=== PATIENT | male | born 1945 | race Caucasian/White ===

== ENCOUNTER 2017-12-12 05:41 | Day surgery (SDC) | payer MEDICARE, OTHER ==
[~2017-12-12] VITALS: Ht 172.7 cm; Wt 81.0 kg
[2017-12-12] MEDS ORDERED: LACTATED RINGERS 1,000 ML IV SCH (06:30)
[2017-12-12] MEDS ORDERED: LIDOCAINE-MPF 1%, 2ML INFIL ONE (06:30)
[2017-12-12] MEDS ORDERED: EPINEPHRINE 1 MG/ML, 1ML ONE (06:58)
[2017-12-12] MEDS ORDERED: BUPIVACAINE/PF-EPI 0.25% 1:200K ONE (06:58)
[2017-12-12] MEDS ORDERED: VANCOMYCIN 1,000 MG ONE (06:58)
[2017-12-12] MEDS ORDERED: LIDOCAINE/PF 0.5% ,50ML ONE (06:58)
[2017-12-12] MEDS ORDERED: THROMBIN 5,000 UNIT VIAL TP ONE (06:58)
[2017-12-12 07:02] VITALS: BP 119/80
[2017-12-12] MEDS ORDERED: MIDAZOLAM 1 MG/ML, 2ML ONE (07:17)
[2017-12-12 07:29] LABS: INTERNATIONAL NORMALIZED RATIO 1.02 (0.93-1.1); PROTHROMBIN TIME 10.5 Seconds (9.6-11.5)
[2017-12-12] MEDS ORDERED: ATOR20TA9 PO (07:33)
[2017-12-12] MEDS ORDERED: LOSA100T6 PO (07:33)
[2017-12-12] MEDS ORDERED: TRIA1CAP3 PO (07:33)
[2017-12-12] MEDS ORDERED: AMLO5TAB2 PO (07:33)
[2017-12-12] MEDS ORDERED: VITAMIN C PO (07:33)
[2017-12-12] MEDS ORDERED: LEVO25TA4 PO (07:33)
[2017-12-12] MEDS ORDERED: VIT D PO (07:33)
[2017-12-12] MEDS ORDERED: ASPI-496 PO (07:33)
[2017-12-12] MEDS ORDERED: POLY17PO5 PO (07:33)
[2017-12-12] MEDS ORDERED: OMEP40CA6 PO (07:33)
[2017-12-12] MEDS ORDERED: WARF-36 PO (07:33)
[2017-12-12] MEDS ORDERED: OMEG1CAP6 PO (07:33)
[2017-12-12] MEDS ORDERED: LIDOCAINE PATCH TD (07:33)
[2017-12-12] MEDS ORDERED: PRESERVISION PO (07:33)
[2017-12-12] MEDS ORDERED: MULT-658 PO (07:33)
[2017-12-12] MEDS ORDERED: METF500T5 PO (07:33)
[2017-12-12] MEDS ORDERED: GABAPENTIN 300 MG CAPSULE ONE (07:36)
[2017-12-12] MEDS ORDERED: ACETAMINOPHEN 500 MG TABLET ONE (07:36)
[2017-12-12] MEDS ORDERED: NEOSTIGMINE 1 MG/ML, 10ML ONE (07:46)
[2017-12-12] MEDS ORDERED: ROCURONIUM 10 MG/ML,10ML ONE (07:46)
[2017-12-12] MEDS ORDERED: ONDANSETRON 2MG/ML, 2ML ONE (07:46)
[2017-12-12] MEDS ORDERED: CEFAZOLIN 1,000 MG ONE (07:46)
[2017-12-12] MEDS ORDERED: PROPOFOL 10 MG/ML, 20ML ONE (07:46)
[2017-12-12] MEDS ORDERED: GLYCOPYRROLATE 0.2MG/1ML, 5ML ONE (07:46)
[2017-12-12] MEDS ORDERED: hydrALAzine 20 MG/ML, 1ML IV PRN (08:30)
[2017-12-12] MEDS ORDERED: HYDROmorphone 1 MG/ML, 1ML IV PRN (08:30)
[2017-12-12] MEDS ORDERED: OXYcodone 5 MG/5 ML ORAL.SOL UDC PO PRN (08:30)
[2017-12-12] MEDS ORDERED: MEPERIDINE/PF 25MG/0.5ML IVPush PRN (08:30)
[2017-12-12] MEDS ORDERED: LORazepam 2 MG/ML, 1ML IVPush PRN (08:30)
[2017-12-12] MEDS ORDERED: FENTANYL PF 100 MCG/2ML IV PRN (08:30)
[2017-12-12] MEDS ORDERED: PROMETHAZINE 25 MG/ML, 1ML IV PRN (08:30)
[2017-12-12] MEDS ORDERED: ALBUTEROL SULFATE 2.5 MG/3 ML NPPB PRN (08:30)
[2017-12-12] MEDS ORDERED: LABETALOL 5MG/ML, 20ML IV PRN (08:30)
[2017-12-12] MEDS ORDERED: FENTANYL PF 250 MCG/5ML ONE (09:16)
[2017-12-12] MEDS ORDERED: OXYcodone 5 MG/5 ML ORAL.SOL UDC ONE (09:48)
== END 2017-12-12 12:25 | disposition home or self-care (01) ==
LOC: OUT 05:41
PROVIDERS: ATTEND Orthopaedic Surgery Orthopaedic Surgery of the Spine
DX: M54.16 Radiculopathy, lumbar region (principal); M48.061 Spinal stenosis, lumbar region without neurogenic claudication; E11.9 Type 2 diabetes mellitus without complications; I10 Essential (primary) hypertension; Z96.641 Presence of right artificial hip joint; Z98.890 Other specified postprocedural states; Z79.82 Long term (current) use of aspirin
CPT/HCPCS: 36415; 63047; 72100; 82962; 85610; 85730; J0171; J0690; J2001; J2250; J2405; J2704; J2710; J3010; J3370; J3490

== ENCOUNTER 2018-01-04 02:13 | Inpatient (IN) | payer MEDICARE, OTHER ==
[~2018-01-04] VITALS: Ht 172.7 cm; Wt 79.8 kg
[~2018-01-04 02:13] MED LIST: AMLO5TAB7 PO; ASPI-496 PO; ATOR20TA9 PO; LEVO25TA4 PO; LIDOCAINE PATCH TD; LOSA100T7 PO; METF500T17 PO; MULT-658 PO; OMEG1CAP6 PO; OMEP40CA6 PO; POLY17PO5 PO; PRESERVISION PO; TRIA1CAP3 PO; VIT D PO; VITAMIN C PO; WARF-36 PO
[2018-01-04] MEDS ORDERED: MORPHINE SULFATE 4 MG/ML, 1ML IVPush ONE (03:00)
[2018-01-04] MEDS ORDERED: ONDANSETRON ODT 4 MG PO ONE (03:00)
[2018-01-04 03:10] LABS: BASOPHILS # (AUTO) 0.02 x10^3/uL (0-0.1); BASOPHILS % (AUTO) 0 % (0-1); EOSINOPHILS # (AUTO) 0.04 x10^3/uL (0-0.4); EOSINOPHILS % (AUTO) 0 % (1-7); LYMPHOCYTES # (AUTO) 0.48 x10^3/uL (1-3.4); LYMPHOCYTES % (AUTO) 4 % (22-44); MD NO; MEAN CORPUSCULAR HEMOGLOBIN 30.2 pg (27.5-34.5); MEAN CORPUSCULAR HGB CONC 33.8 g/dL (33.2-36.2); MEAN CORPUSCULAR VOLUME 89.4 fL (81-97); MEAN PLATELET VOLUME 9.4 fL (7.4-10.4); MONOCYTES # (AUTO) 0.48 x10^3/uL (0.2-0.8); MONOCYTES % (AUTO) 4 % (2-9); NEUTROPHILS # (AUTO) 9.97 x10^3/uL (1.8-6.8); NEUTROPHILS % (AUTO) 91 % (42-75); PLATELET COUNT 120 x10^3/uL (130-400); RED BLOOD COUNT 4.87 x10^6/uL (4.38-5.82); RED CELL DISTRIBUTION WIDTH 14.3 % (9.4-14.8)
[2018-01-04 03:12] LABS: CULTURE INDICATED? YES; MICROSCOPIC INDICATED
[2018-01-04] MEDS ORDERED: ONDANSETRON ODT 4 MG ONE (03:20)
[2018-01-04] MEDS ORDERED: MORPHINE SULFATE 4 MG/ML, 1ML ONE (03:21)
[2018-01-04 03:23] LABS: ALANINE AMINOTRANSFERASE 36 U/L (12-78); ALBUMIN 3.3 g/dL (3.4-5.0); ANION GAP 10 mmol/L (5-15); CALCIUM 9.3 mg/dL (8.5-10.1); CHLORIDE 103 mmol/L (98-107); CREATININE 1.79 mg/dL (0.7-1.3)
[2018-01-04 03:25] LABS: ALKALINE PHOSPHATASE 96 U/L (45-117); BILIRUBIN,TOTAL 1.7 mg/dL (0.2-1.0)
[2018-01-04] MEDS ORDERED: SODIUM CHLORIDE 0.9% 1,000 ML IV ONE (03:58)
[2018-01-04] MEDS ORDERED: MORPHINE SULFATE 4 MG/ML, 1ML IVPush PRN ×2 (04:00→16:30)
[2018-01-04 05:16] VITALS: BP 143/86
[2018-01-04] MEDS: SODIUM CHLORIDE 0.9% 1,000 ML IV SCH ×2 (05:53→18:54)
[2018-01-04] MEDS ORDERED: ONDANSETRON 2MG/ML, 2ML IVPush PRN (06:00)
[2018-01-04] MEDS: POLYETHYLENE GLYCOL 17 GM PACKET PO SCH ×2 (06:00→07:31)
[2018-01-04] MEDS ORDERED: POLYETHYLENE GLYCOL 17 GM PACKET PO PRN (06:00)
[2018-01-04] MEDS: ASPIRIN 81 MG TABLET EC PO SCH (06:00)
[2018-01-04] MEDS ORDERED: hydrALAzine 20 MG/ML, 1ML IVPush PRN (06:00)
[2018-01-04] MEDS ORDERED: LABETALOL 5MG/ML, 20ML IVPush PRN (06:00)
[2018-01-04] MEDS ORDERED: BISACODYL 10 MG SUPP PR PRN (06:00)
[2018-01-04] MEDS ORDERED: METHOCARBAMOL 500 MG TABLET PO PRN (06:00)
[2018-01-04] MEDS ORDERED: PROMETHAZINE 25 MG/ML, 1ML IM PRN (06:00)
[2018-01-04] MEDS ORDERED: ACETAMINOPHEN 325 MG TABLET PO PRN (06:00)
[2018-01-04] MEDS ORDERED: LIDODERM 5% PATCH TD PRN (06:00)
[2018-01-04] MEDS: ERTAPENEM 1 GM in SODIUM CHLORIDE 0.9% 50 ML IV SCH (06:30)
[2018-01-04] MEDS: AMLODIPINE 5 MG TABLET PO SCH ×2 (06:30→07:33)
[2018-01-04] MEDS: INSULIN LISPRO 100 UNITS/ML, PEN SQ-INSULIN SCH ×4 (06:40→21:00)
[2018-01-04 06:43] LABS: HEMOGLOBIN A1C 6.4 % (4.2-6.3)
[2018-01-04 06:49] LABS: FREE T4 (FREE THYROXINE) 1.08 ng/dL (0.76-1.46); THYROID STIMULATING HORMONE 2.16 mIU/L (0.358-3.740)
[2018-01-04] MEDS: OMEPRAZOLE 20 MG CAPSULE.DR PO SCH (07:30)
[2018-01-04] MEDS: OMEGA-3/FISH OIL CAPSULE PO SCH (07:31)
[2018-01-04] MEDS: PRESERVISION PO SCH ×2 (07:31→21:00)
[2018-01-04] MEDS: MULTIVITAMIN 1 TABLET PO SCH (07:31)
[2018-01-04] MEDS: CHOLECALCIFEROL 1,000 UNIT TABLET PO SCH (07:32)
[2018-01-04] MEDS: SENNA/DOCUSATE TABLET PO SCH (07:32)
[2018-01-04] MEDS: LEVOTHYROXINE 25 MCG TABLET PO SCH (07:32)
[2018-01-04] MEDS: ASCORBIC ACID 500 MG TABLET PO SCH (07:32)
[2018-01-04 07:34] VITALS: BP 110/73
[2018-01-04] MEDS ORDERED: SODIUM CHLORIDE 0.9% IVPB SCH (08:30)
[2018-01-04] MEDS ORDERED: DAPTOMYCIN IVPB SCH (08:30)
[2018-01-04 09:05] LABS: INTERNATIONAL NORMALIZED RATIO 2.94 (0.93-1.1); PROTHROMBIN TIME 29.9 Seconds (9.6-11.5)
[2018-01-04] MEDS ORDERED: METOCLOPRAMIDE 5 MG/ML, 2ML ONE (10:20)
[2018-01-04] MEDS ORDERED: GADOBUTROL 7.5 MMOL/7.5 ML PFS ONE (10:41)
[2018-01-04] MEDS: DAPTOMYCIN 450 MG in SODIUM CHLORIDE 0.9% 100 ML IVPB SCH (11:50)
[2018-01-04 12:40] VITALS: BP 122/78
[2018-01-04] MEDS: ONDANSETRON ODT 4 MG PO PRN ×2 (14:33→22:50)
[2018-01-04] MEDS: morphine SULFATE 10 MG/ML, 1ML IVPush PRN ×2 (14:34→22:50)
[2018-01-04 15:30] LABS: INTERNATIONAL NORMALIZED RATIO 2.72 (0.93-1.1); PROTHROMBIN TIME 27.7 Seconds (9.6-11.5)
[2018-01-04] MEDS ORDERED: OMNIPAQUE 350 MG/ML, 50 ML BOTTLE ONE (16:00)
[2018-01-04] MEDS ORDERED: MIDAZOLAM 1 MG/ML, 2ML ONE (16:04)
[2018-01-04] MEDS ORDERED: FENTANYL PF 250 MCG/5ML ONE (16:04)
[2018-01-04] MEDS ORDERED: hydrALAzine 20 MG/ML, 1ML IV PRN (16:30)
[2018-01-04] MEDS ORDERED: OXYcodone 5 MG/5 ML ORAL.SOL UDC PO PRN (16:30)
[2018-01-04] MEDS ORDERED: HALOPERIDOL 5 MG/ML IV PRN (16:30)
[2018-01-04] MEDS ORDERED: HYDROmorphone 2 MG/ML, 1ML IV PRN (16:30)
[2018-01-04] MEDS ORDERED: LABETALOL 5MG/ML, 20ML IV PRN (16:30)
[2018-01-04] MEDS ORDERED: FENTANYL PF 100 MCG/2ML IV PRN (16:30)
[2018-01-04] MEDS ORDERED: ONDANSETRON 2MG/ML, 2ML IV PRN (16:30)
[2018-01-04] MEDS ORDERED: ONDANSETRON 2MG/ML, 2ML ONE (16:51)
[2018-01-04] MEDS ORDERED: PROPOFOL 10 MG/ML, 20ML ONE (16:51)
[2018-01-04] MEDS ORDERED: ROCURONIUM 10MG/ML,5ML ONE (16:51)
[2018-01-04 18:23] VITALS: BP 117/59
[2018-01-04] MEDS: ATORVASTATIN 20 MG TABLET PO SCH (22:50)
[2018-01-05 00:19] VITALS: BP 106/61
[2018-01-05 04:09] VITALS: BP 119/72
[2018-01-05 05:16] LABS: MEAN CORPUSCULAR HEMOGLOBIN 29.6 pg (27.5-34.5); MEAN CORPUSCULAR HGB CONC 33.5 g/dL (33.2-36.2); MEAN CORPUSCULAR VOLUME 88.2 fL (81-97); PLATELET COUNT 109 x10^3/uL (130-400); RED BLOOD COUNT 4.18 x10^6/uL (4.38-5.82); RED CELL DISTRIBUTION WIDTH 14.4 % (9.4-14.8)
[2018-01-05 05:18] LABS: CHLORIDE 104 mmol/L (98-107)
[2018-01-05 05:45] LABS: ALANINE AMINOTRANSFERASE 141 U/L (12-78); ALBUMIN 2.6 g/dL (3.4-5.0); ALKALINE PHOSPHATASE 125 U/L (45-117); ANION GAP 10 mmol/L (5-15); BILIRUBIN,TOTAL 0.7 mg/dL (0.2-1.0); CALCIUM 8.7 mg/dL (8.5-10.1); CHOL/HDL RATIO 7.1; CHOLESTEROL, TOTAL 106 mg/dL (140-239); CREATININE 1.44 mg/dL (0.7-1.3); HDL CHOL % 14 % (26-37); HDL CHOLESTEROL (DIRECT) 15 mg/dL (40-60); LDL CHOLESTEROL,CALCULATED 28 mg/dL (54-169); LDL/HDL RATIO 1.9 (0.5-3.0); TOTAL PROTEIN 6.6 g/dL (6.4-8.2); TRIGLYCERIDES 316 mg/dL (50-200); VLDL CHOLESTEROL 63 mg/dL (0-25)
[2018-01-05 05:56] LABS: BASOPHILS # (AUTO) 0.01 x10^3/uL (0-0.1); BASOPHILS % (AUTO) 0 % (0-1); EOSINOPHILS # (AUTO) 0.03 x10^3/uL (0-0.4); EOSINOPHILS % (AUTO) 1 % (1-7); LYMPHOCYTES # (AUTO) 0.45 x10^3/uL (1-3.4); LYMPHOCYTES % (AUTO) 10 % (22-44); MD SCAN; MONOCYTES # (AUTO) 0.53 x10^3/uL (0.2-0.8); MONOCYTES % (AUTO) 12 % (2-9); NEUTROPHILS # (AUTO) 3.34 x10^3/uL (1.8-6.8); NEUTROPHILS % (AUTO) 77 % (42-75)
[2018-01-05] MEDS: ASPIRIN 81 MG TABLET EC PO SCH (05:59)
[2018-01-05] MEDS: ERTAPENEM 1 GM in SODIUM CHLORIDE 0.9% 50 ML IV SCH (05:59)
[2018-01-05] MEDS: INSULIN LISPRO 100 UNITS/ML, PEN SQ-INSULIN SCH ×4 (06:04→21:16)
[2018-01-05 07:58] VITALS: BP 115/70
[2018-01-05] MEDS: ASCORBIC ACID 500 MG TABLET PO SCH (08:43)
[2018-01-05] MEDS: OMEPRAZOLE 20 MG CAPSULE.DR PO SCH (08:43)
[2018-01-05] MEDS: CHOLECALCIFEROL 1,000 UNIT TABLET PO SCH (08:43)
[2018-01-05] MEDS: OMEGA-3/FISH OIL CAPSULE PO SCH (08:43)
[2018-01-05] MEDS: AMLODIPINE 5 MG TABLET PO SCH (08:43)
[2018-01-05] MEDS: POLYETHYLENE GLYCOL 17 GM PACKET PO SCH (08:44)
[2018-01-05] MEDS: SENNA/DOCUSATE TABLET PO SCH (08:44)
[2018-01-05] MEDS: MULTIVITAMIN 1 TABLET PO SCH (08:44)
[2018-01-05] MEDS: PRESERVISION PO SCH ×2 (08:44→21:00)
[2018-01-05] MEDS: LEVOTHYROXINE 25 MCG TABLET PO SCH (08:44)
[2018-01-05] MEDS: TAMSULOSIN 0.4 MG CAP.ER.24H PO SCH (11:22)
[2018-01-05] MEDS: DAPTOMYCIN 450 MG in SODIUM CHLORIDE 0.9% 100 ML IVPB SCH (12:01)
[2018-01-05 14:19] VITALS: BP 109/66
[2018-01-05] MEDS ORDERED: VANCOMYCIN PER PHARMACY MC PRN (16:00)
[2018-01-05] MEDS ORDERED: PHARMACY MAY ADJ FOR RENAL FX MC PRN (16:00)
[2018-01-05] MEDS: morphine SULFATE 10 MG/ML, 1ML IVPush PRN (16:34)
[2018-01-05] MEDS: ONDANSETRON ODT 4 MG PO PRN (16:34)
[2018-01-05] MEDS ORDERED: PHARMACOKINETIC MONITORING MC PRN (17:00)
[2018-01-05] MEDS: VANCOMYCIN 1,500 MG in SODIUM CHLORIDE 0.9% 250 ML IV SCH (19:03)
[2018-01-05 19:55] VITALS: BP 103/64
[2018-01-05] MEDS ORDERED: DIPHENHYDRAMINE 25 MG CAPSULE PO ONE (20:30)
[2018-01-05] MEDS: ATORVASTATIN 20 MG TABLET PO SCH (21:17)
[2018-01-06 00:45] VITALS: BP 122/73
[2018-01-06 05:20] LABS: BASOPHILS # (AUTO) 0.02 x10^3/uL (0-0.1); BASOPHILS % (AUTO) 0 % (0-1); EOSINOPHILS # (AUTO) 0.32 x10^3/uL (0-0.4); EOSINOPHILS % (AUTO) 7 % (1-7); LYMPHOCYTES # (AUTO) 0.62 x10^3/uL (1-3.4); LYMPHOCYTES % (AUTO) 14 % (22-44); MD NO; MEAN CORPUSCULAR HEMOGLOBIN 29.8 pg (27.5-34.5); MEAN CORPUSCULAR HGB CONC 33.9 g/dL (33.2-36.2); MEAN CORPUSCULAR VOLUME 87.9 fL (81-97); MEAN PLATELET VOLUME 9.1 fL (7.4-10.4); MONOCYTES # (AUTO) 0.59 x10^3/uL (0.2-0.8); MONOCYTES % (AUTO) 13 % (2-9); NEUTROPHILS # (AUTO) 2.91 x10^3/uL (1.8-6.8); NEUTROPHILS % (AUTO) 65 % (42-75); PLATELET COUNT 111 x10^3/uL (130-400); RED BLOOD COUNT 4.08 x10^6/uL (4.38-5.82); RED CELL DISTRIBUTION WIDTH 14.5 % (9.4-14.8)
[2018-01-06 05:28] LABS: ALBUMIN 2.6 g/dL (3.4-5.0); ANION GAP 8 mmol/L (5-15); CALCIUM 8.9 mg/dL (8.5-10.1); CHLORIDE 104 mmol/L (98-107)
[2018-01-06 05:32] LABS: ALANINE AMINOTRANSFERASE 541 U/L (12-78); ALKALINE PHOSPHATASE 183 U/L (45-117); BILIRUBIN,TOTAL 0.7 mg/dL (0.2-1.0); CREATININE 1.41 mg/dL (0.7-1.3); TOTAL PROTEIN 6.4 g/dL (6.4-8.2)
[2018-01-06] MEDS: ASPIRIN 81 MG TABLET EC PO SCH (06:28)
[2018-01-06] MEDS: ERTAPENEM 1 GM in SODIUM CHLORIDE 0.9% 50 ML IV SCH (06:28)
[2018-01-06] MEDS: INSULIN LISPRO 100 UNITS/ML, PEN SQ-INSULIN SCH ×4 (06:34→20:28)
[2018-01-06 07:43] VITALS: BP 107/69
[2018-01-06] MEDS: PRESERVISION PO SCH ×2 (09:00→20:22)
[2018-01-06] MEDS: LEVOTHYROXINE 25 MCG TABLET PO SCH (09:03)
[2018-01-06] MEDS: OMEGA-3/FISH OIL CAPSULE PO SCH (09:03)
[2018-01-06] MEDS: ASCORBIC ACID 500 MG TABLET PO SCH (09:03)
[2018-01-06] MEDS: SENNA/DOCUSATE TABLET PO SCH (09:04)
[2018-01-06] MEDS: TAMSULOSIN 0.4 MG CAP.ER.24H PO SCH (09:04)
[2018-01-06] MEDS: AMLODIPINE 5 MG TABLET PO SCH (09:04)
[2018-01-06] MEDS: MULTIVITAMIN 1 TABLET PO SCH (09:05)
[2018-01-06] MEDS: POLYETHYLENE GLYCOL 17 GM PACKET PO SCH (09:05)
[2018-01-06] MEDS: OMEPRAZOLE 20 MG CAPSULE.DR PO SCH (09:09)
[2018-01-06] MEDS: CHOLECALCIFEROL 1,000 UNIT TABLET PO SCH (09:09)
[2018-01-06] MEDS: MEROPENEM 1 GM in SODIUM CHLORIDE 0.9% 100 ML IV SCH ×2 (11:27→20:28)
[2018-01-06 13:55] VITALS: BP 98/64
[2018-01-06 15:35] LABS: INTERNATIONAL NORMALIZED RATIO 1.44 (0.93-1.1); PROTHROMBIN TIME 14.9 Seconds (9.6-11.5)
[2018-01-06] MEDS ORDERED: WARFARIN 7.5 MG TABLET PO-COUM ONE (18:00)
[2018-01-06] MEDS: VANCOMYCIN 1,500 MG in SODIUM CHLORIDE 0.9% 250 ML IV SCH (18:20)
[2018-01-06 19:20] VITALS: BP 117/63
[2018-01-07 02:21] VITALS: BP 121/72
[2018-01-07] MEDS: MEROPENEM 1 GM in SODIUM CHLORIDE 0.9% 100 ML IV SCH ×2 (04:28→12:43)
[2018-01-07 05:52] LABS: INTERNATIONAL NORMALIZED RATIO 1.3 (0.93-1.1); PROTHROMBIN TIME 13.4 Seconds (9.6-11.5)
[2018-01-07 05:56] LABS: ALANINE AMINOTRANSFERASE 435 U/L (12-78); ALBUMIN 2.6 g/dL (3.4-5.0); ANION GAP 10 mmol/L (5-15); CALCIUM 9.1 mg/dL (8.5-10.1); CHLORIDE 108 mmol/L (98-107); CREATININE 1.12 mg/dL (0.7-1.3)
[2018-01-07 05:58] LABS: ALKALINE PHOSPHATASE 151 U/L (45-117); BILIRUBIN,TOTAL 0.6 mg/dL (0.2-1.0); TOTAL PROTEIN 6.4 g/dL (6.4-8.2)
[2018-01-07] MEDS: ASPIRIN 81 MG TABLET EC PO SCH (06:33)
[2018-01-07] MEDS: INSULIN LISPRO 100 UNITS/ML, PEN SQ-INSULIN SCH ×4 (07:00→21:00)
[2018-01-07 07:29] VITALS: BP 123/75
[2018-01-07] MEDS: MULTIVITAMIN 1 TABLET PO SCH (08:20)
[2018-01-07] MEDS: AMLODIPINE 5 MG TABLET PO SCH (08:20)
[2018-01-07] MEDS: OMEPRAZOLE 20 MG CAPSULE.DR PO SCH (08:20)
[2018-01-07] MEDS: CHOLECALCIFEROL 1,000 UNIT TABLET PO SCH (08:20)
[2018-01-07] MEDS: POLYETHYLENE GLYCOL 17 GM PACKET PO SCH (08:21)
[2018-01-07] MEDS: ASCORBIC ACID 500 MG TABLET PO SCH (08:21)
[2018-01-07] MEDS: OMEGA-3/FISH OIL CAPSULE PO SCH (08:21)
[2018-01-07] MEDS: LEVOTHYROXINE 25 MCG TABLET PO SCH (08:21)
[2018-01-07] MEDS: SENNA/DOCUSATE TABLET PO SCH (08:21)
[2018-01-07] MEDS: TAMSULOSIN 0.4 MG CAP.ER.24H PO SCH (08:28)
[2018-01-07] MEDS: PRESERVISION PO SCH ×2 (09:00→21:00)
[2018-01-07] MEDS ORDERED: TEMPLATE NON-FORMULARY MED. (Warfarin Sodium** 5 MG) PO SCH (09:00)
[2018-01-07] MEDS ORDERED: WARFARIN 7.5 MG TABLET PO-COUM ONE (18:00)
[2018-01-07 18:59] VITALS: BP 117/76
[2018-01-08 02:58] VITALS: BP 119/75
[2018-01-08 05:29] LABS: INTERNATIONAL NORMALIZED RATIO 1.47 (0.93-1.1); PROTHROMBIN TIME 15.2 Seconds (9.6-11.5)
[2018-01-08 05:36] LABS: CHLORIDE 108 mmol/L (98-107)
[2018-01-08 05:42] LABS: BASOPHILS # (AUTO) 0.03 x10^3/uL (0-0.1); BASOPHILS % (AUTO) 1 % (0-1); EOSINOPHILS # (AUTO) 0.29 x10^3/uL (0-0.4); EOSINOPHILS % (AUTO) 6 % (1-7); LYMPHOCYTES # (AUTO) 1.03 x10^3/uL (1-3.4); LYMPHOCYTES % (AUTO) 19 % (22-44); MD NO; MEAN CORPUSCULAR HEMOGLOBIN 29.5 pg (27.5-34.5); MEAN CORPUSCULAR HGB CONC 33.5 g/dL (33.2-36.2); MEAN CORPUSCULAR VOLUME 88.1 fL (81-97); MEAN PLATELET VOLUME 8.8 fL (7.4-10.4); MONOCYTES # (AUTO) 0.64 x10^3/uL (0.2-0.8); MONOCYTES % (AUTO) 12 % (2-9); NEUTROPHILS # (AUTO) 3.32 x10^3/uL (1.8-6.8); NEUTROPHILS % (AUTO) 63 % (42-75); PLATELET COUNT 144 x10^3/uL (130-400); RED BLOOD COUNT 4.27 x10^6/uL (4.38-5.82); RED CELL DISTRIBUTION WIDTH 14.2 % (9.4-14.8)
[2018-01-08 05:44] LABS: ALANINE AMINOTRANSFERASE 361 U/L (12-78); ALBUMIN 2.8 g/dL (3.4-5.0); ALKALINE PHOSPHATASE 137 U/L (45-117); ANION GAP 9 mmol/L (5-15); BILIRUBIN,TOTAL 0.5 mg/dL (0.2-1.0); CALCIUM 9.1 mg/dL (8.5-10.1); TOTAL PROTEIN 6.8 g/dL (6.4-8.2)
[2018-01-08] MEDS: ASPIRIN 81 MG TABLET EC PO SCH (06:31)
[2018-01-08] MEDS: INSULIN LISPRO 100 UNITS/ML, PEN SQ-INSULIN SCH (07:00)
[2018-01-08] MEDS: OMEPRAZOLE 20 MG CAPSULE.DR PO SCH (07:37)
[2018-01-08 07:54] VITALS: BP 113/74
[2018-01-08] MEDS: OMEGA-3/FISH OIL CAPSULE PO SCH (08:47)
[2018-01-08] MEDS: MULTIVITAMIN 1 TABLET PO SCH (08:47)
[2018-01-08] MEDS: LEVOTHYROXINE 25 MCG TABLET PO SCH (08:47)
[2018-01-08] MEDS: ASCORBIC ACID 500 MG TABLET PO SCH (08:47)
[2018-01-08] MEDS: TAMSULOSIN 0.4 MG CAP.ER.24H PO SCH (08:47)
[2018-01-08] MEDS: AMLODIPINE 5 MG TABLET PO SCH (08:48)
[2018-01-08] MEDS: CHOLECALCIFEROL 1,000 UNIT TABLET PO SCH (08:48)
[2018-01-08] MEDS: POLYETHYLENE GLYCOL 17 GM PACKET PO SCH (08:54)
[2018-01-08] MEDS: SENNA/DOCUSATE TABLET PO SCH (08:56)
[2018-01-08] MEDS ORDERED: LEVOFLOXACIN 750 MG TABLET PO SCH (09:00)
[2018-01-08] MEDS: PRESERVISION PO SCH (09:00)
[2018-01-08] MEDS ORDERED: TAMS-11 PO (10:10)
[2018-01-08] MEDS ORDERED: LEVO750T26 PO (10:10)
[2018-01-08 10:32] VITALS: BP 115/83
[2018-01-08] MEDS ORDERED: WARFARIN 7.5 MG TABLET PO-COUM ONE (18:00)
== END 2018-01-08 12:10 | disposition home or self-care (01) | DRG 871 ==
LOC: ED 03:15 → EDIP 03:58 → 4NOR 05:05 → DCLOUNGE 01-08 11:59
PROVIDERS: ADMIT Internal Medicine; ATTEND Internal Medicine
PROC: 0T778DZ Dilation of Left Ureter with Intraluminal Device, Via Natural or Artificial Opening Endoscopic (ICD-10-PCS; principal; 2018-01-04 16:00)
DX: A41.9 Sepsis, unspecified organism (principal); N17.0 Acute kidney failure with tubular necrosis; D68.2 Hereditary deficiency of other clotting factors; E44.0 Moderate protein-calorie malnutrition; N13.6 Pyonephrosis; B96.1 Klebsiella pneumoniae [K. pneumoniae] as the cause of diseases classified elsewhere; D69.6 Thrombocytopenia, unspecified; K21.9 Gastro-esophageal reflux disease without esophagitis; E03.9 Hypothyroidism, unspecified; E11.9 Type 2 diabetes mellitus without complications; E78.2 Mixed hyperlipidemia; I10 Essential (primary) hypertension; Z96.652 Presence of left artificial knee joint; Z96.641 Presence of right artificial hip joint; R65.20 Severe sepsis without septic shock; Z83.3 Family history of diabetes mellitus; Z80.8 Family history of malignant neoplasm of other organs or systems; Z88.1 Allergy status to other antibiotic agents; Z88.6 Allergy status to analgesic agent; Z68.26 Body mass index [BMI] 26.0-26.9, adult; Z87.442 Personal history of urinary calculi; Z87.891 Personal history of nicotine dependence
CPT/HCPCS: 36415; 72158; 74018; 74420; 76700; 80053; 80061; 81001; 82962; 83036; 83735; 84439; 84443; 85025; 85610; 87040; 87077; 87086; 87186; 93005; 96374; 99285; A9585; C1726; G0378; J0878; J1335; J2185; J2250; J2405; J2704; J3010; J3370; Q0162; Q9967; C1769; C2617; J1815; J2270; J2765; J7030; J7050; Q0163